=== PATIENT | male | born 1960 | race Caucasian/White ===

== ENCOUNTER 2019-01-19 06:30 | Day surgery (SDC) | payer MEDICARE ==
[~2019-01-19 06:30] MED LIST: Buffered Lidocaine 1% SYRIN* 1 ML/SYRINGE INTRADERM ONE
[2019-01-19] MEDS ORDERED: ceFAZolin 2 GM PREMIX in ORs 2 GM/50 ML BAG ONE (07:11)
[2019-01-19] MEDS ORDERED: ceFAZolin 1 GM ADVAN(*) 1 GM ADDV.VIAL IVPB ONE (07:11)
[2019-01-19] MEDS ORDERED: Buffered Lidocaine 1% SYRIN* 1 ML/SYRINGE INTRADERM ONE (07:12)
[2019-01-19] MEDS: Lactated Ringers 1000 ML Bag* 1,000 ML IV SCH ×2 (07:26→11:54)
[2019-01-19] MEDS ORDERED: Midazolam* 1 MG/ML 2 ML VIAL (2 MG) ONE (08:32)
[2019-01-19] MEDS ORDERED: fentaNYL* 50 MCG/ML 2 ML VIAL (100 MCG VIAL) ONE (08:32)
[2019-01-19] MEDS ORDERED: Famotidine IV* 10 MG/ML 2 ML (20 mg) ONE (09:03)
[2019-01-19] MEDS ORDERED: ROPIVACAINE 5 MG/ML 30 ML BTL (0.5%) ONE (09:04)
[2019-01-19] MEDS ORDERED: Ropivacaine (OR use only) 2 MG/ML 10 ML ONE (09:04)
[2019-01-19] MEDS ORDERED: Bupivacaine 0.25% W/EPI* 10 ML SDV ONE (09:29)
[2019-01-19] MEDS ORDERED: Dexamethasone IV* 4 MG/ML 1 ML (4 MG) ONE (09:51)
[2019-01-19] MEDS ORDERED: Ketorolac INJ* 30 MG/ML 1 ML VIAL ONE (09:51)
[2019-01-19] MEDS ORDERED: Propofol* 10 MG/ML 20 ML BTL ONE (09:51)
[2019-01-19] MEDS ORDERED: Lidocaine 2% PF * 5 ML VIAL ONE (09:51)
[2019-01-19] MEDS ORDERED: fentaNYL* 50 MCG/ML 2 ML VIAL (100 MCG VIAL) IV PRN (10:12)
[2019-01-19] MEDS ORDERED: Naloxone* 0.4 MG/ML 1 ML VIAL IV PRN (10:12)
[2019-01-19] MEDS ORDERED: diPHENhydraMINE IV* 50 MG/ML 1 ml VIAL (BENADRYL) IV PRN (10:12)
[2019-01-19] MEDS ORDERED: PROCHLORPERAZINE INJ 5 MG/ML 2 ML VIAL IV PRN (10:12)
[2019-01-19] MEDS ORDERED: HYDROcodone/ACETAMIN 5-325 MG* 1 TAB PO PRN ×2 (10:12)
[2019-01-19] MEDS ORDERED: DiMENhydriNATE IV* 50 MG/ML VIAL IV PUSH PRN (10:12)
[2019-01-19] MEDS ORDERED: Levalbuterol 0.63MG/3ML NEB* UNIT OF USE INH PRN (10:12)
[2019-01-19] MEDS ORDERED: Acetaminophen TAB* 325 MG PO PRN (10:12)
[2019-01-19] MEDS ORDERED: Bupivacaine 0.25% SDV PF* 10 ML VIAL INJ ONE (11:27)
[2019-01-19 13:05] VITALS: BP 101/64
--- NOTE | 2019-01-19 15:38 | OP ---
Operative Report - Blank - Operative Report Date of Operation: 01/19/19 Note: PATIENT: Fady Ramirez DATE OF : 1960 DATE OF SURGERY: 01/19/2019 SURGEON: Shlomo Dennis MD SALES AND SERVICE TECHNICIAN: JORDAN Caldwell, whos assistance was necessary for positioning, retraction, help with instrumentation, and closure. ANESTHESIOLOGIST: Dr. Ray PREOPERATIVE DIAGNOSIS: Left midfoot arthritis POSTOPERATIVE DIAGNOSIS: Left midfoot arthritis OPERATION: 1. Left midfoot fusions of the 2nd and 3rd tarsometatarsal joints 2. Autogenous bone grafting with left tibial bone graft. ANESTHESIA: General + nerve block IMPLANTS: Arthrex nitinol mohan TOURNIQUET TIME: Less than 2 hours with a well-padded thigh tourniquet at 250 mmHg SPECIMENS: none ESTIMATED BLOOD LOSS: minimal COMPLICATIONS: none STATUS: Stable from the operating room to the recovery room and then home. INDICATIONS FOR PROCEDURE: Fady has had persistent pain and limitations from left midfoot arthritis. Both operative and non operative treatment alternatives were reviewed. Further, the nature and risks of surgery were reviewed in careful detail, in the office as well as the pre-operative holding area. Our discussions regarding the risks of surgery included, but were not limited to, infection, wound problems, nerve injury, neuroma, RSD, persistent symptoms, blood clot, fracture, nonunion, malunion, hardware pain, need for further surgery, persistent pain and symptoms , failure of the surgery, and even the remote chance of catastrophic complication, including loss of limb. DESCRIPTION OF PROCEDURE: The patient was seen in the preoperative holding unit and informed written consent was obtained. The appropriate extremity was marked. The patient was then brought to the operating room and carefully positioned on the operating room table. Anesthesia was induced. All bony prominences were padded with great care. A well-padded thigh tourniquet was placed. A chlorhexidine based pre- scrub was performed followed by a chloraprep prep and drape in standard sterile fashion. A surgical safety pause was then conducted in which we confirmed the appropriate patient, extremity, planned procedure, availability of equipment, indication and administration of prophylactic antibiotics, and DVT prophylaxis in the form of a compression boot on the non-surgical extremity. We began with an Esmarch exsanguination of the limb and inflated the tourniquet. I utilized a longitudinal incision centered between the 2nd and 3rd TMT joints. Careful dissection was taken down to the level of the bones and the joints were exposed in a subperiosteal manner. As expected, arthritis was encountered in the 2nd and 3rd TMT joints. These joints were exposed with the use of laminar spreaders and Hintermann retractors. Any remaining cartilage was removed. The joints were then prepared for fusion by using curettes, burrs, osteotomes. Attention was then turned to the left proximal tibia crest. An incision was made over Gerdy's tubercle. Careful dissection was performed down to the bone. The cortex was windowed and a curette was used to harvest autogenous bone graft. The bone graft was then placed into the prior-prepared midfoot joints, which were then reduced and fixation was placed with three Arthrex nitinol mohan. Excellent compression across the joints was achieved and I was not even able to fit the 15 blade scalpel into the joints. Fluoroscopy was used throughout and at the end, final fluoroscopic images were obtained. At this point, we irrigated the wounds copiously and then closed in layers meticulously utilizing 3-0 Monocryl and 3-0 nylon for the skin. A sterile dressing was then applied followed by a splint with the ankle in a neutral position. The patient was then awakened from anesthesia and transferred to the recovery room in stable condition. There were no complications. All needle and sponge counts were correct at the end of the case. ATTESTATION: I attest I was present and scrubbed and performed the critical portions of the procedure myself. POSTOPERATIVE PLAN: Follow up will be in 2 weeks for likely suture removal and postop x-rays. The postoperative plan is to be [id number] for 2 months , then weight-bearing as tolerated in a boot.
== END 2019-01-19 13:58 | disposition home or self-care (01) ==
LOC: OR 06:30
PROVIDERS: ATTEND Orthopaedic Surgery
DX: M19.072 Primary osteoarthritis, left ankle and foot (principal); I10 Essential (primary) hypertension; G89.18 Other acute postprocedural pain; F41.8 Other specified anxiety disorders; F31.9 Bipolar disorder, unspecified; M19.90 Unspecified osteoarthritis, unspecified site; G47.33 Obstructive sleep apnea (adult) (pediatric); E66.01 Morbid (severe) obesity due to excess calories
CPT/HCPCS: 76000; C1713; J0690; J1100; J1885; J2250; J2704; J2795; J3010; J3490